=== PATIENT | male | born 1965 | race Caucasian/White ===

== ENCOUNTER → 2022-06-14 | Outpatient (CLI) | payer BC ==
[~2022-06-14] MED LIST: BUFFERED ASPIR325 MG PO; EFFEXOR-XR150 MG PO; MULTIPLE VITAMI1 TAB PO; PRAVACHOL80 MG PO; PRINZIDE 12.5 M1 TA1 PO; TOPROL XL 25MG25 MG PO; TRICOR145 MG PO; VIT D PO
== END ==
LOC: COL.RAD 08:59
DX: N50.89 Other specified disorders of the male genital organs (principal)